=== PATIENT | male | born 2000 | race Caucasian/White ===

== ENCOUNTER 2022-06-15 12:32 | Emergency (ER) | payer OTHER ==
[~2022-06-15] VITALS: Ht 172.7 cm; Wt 83.9 kg
[2022-06-15 12:36] VITALS: BP 142/96
--- NOTE | 2022-06-15 14:15 | NUR ---
PATIENT LEFT WITHOUT BEING SEEN BY DR. WARNER. NO FURTHER CARE PROVIDED FOR PATIENT.
== END 2022-06-15 14:15 | disposition left against medical advice (07) ==
LOC: MED 12:32
DX: R42 Dizziness and giddiness (principal); Z53.21 Procedure and treatment not carried out due to patient leaving prior to being seen by health care provider
CPT/HCPCS: 99281